=== PATIENT | female | born 1990 | race Caucasian/White ===

== ENCOUNTER 2017-06-08 14:43 | Emergency (ER) | payer OTHER ==
[~2017-06-08] VITALS: Ht 157.5 cm; Wt 97.7 kg
[2017-06-08 14:46] VITALS: TEMP 98.6
[2017-06-08 15:28] LABS: BASO # 0.1 (0.0-0.2); BASO % 0.6 % (0.0-2.0); EOS # 0.5 (0.0-0.7); EOS % 3.1 % (0-4.0); GRAN # 9.1 (1.4-6.5); GRAN % 60.2 % (42.2-75.2); HEMATOCRIT 42.2 % (37.0-47.0); HEMOGLOBIN 13.6 g/dl (12.5-16.0); LYMPH # 4.6 (1.2-3.4); LYMPH % 30.8 % (20.0-51.0); MEAN CELL VOLUME 86 fl (80.0-100.0); MEAN CORPUSCULAR HEMOGLOBIN 28 pg (27.0-31.0); MEAN CORPUSCULAR HGB CONC 32 g/dl (33.0-37.0); MEAN PLATELET VOLUME 9.2 fl (7.4-10.4); MONO # 0.7 (0.1-0.6); MONO % 4.4 % (1.7-9.3); PLATELET COUNT 424 K/mm3 (130-400); WHITE BLOOD COUNT 15.1 K/mm3 (4.8-10.8)
[2017-06-08 15:36] LABS: CALCIUM 9.8 mg/dL (8.4-10.2); CREATININE, serum 0.74 mg/dL (0.52-1.25)
[2017-06-08 16:46] VITALS: BP 147/103; PULSE 84
== END 2017-06-08 16:48 | disposition home or self-care (01) ==
LOC: COL.ER 14:43
PROVIDERS: Emergency Medicine
DX: N93.9 Abnormal uterine and vaginal bleeding, unspecified (principal); F17.210 Nicotine dependence, cigarettes, uncomplicated
CPT/HCPCS: J7030

== ENCOUNTER → 2017-12-13 | Outpatient (CLI) | payer OTHER | LOC: COL.RAD 14:20 | DX: R51 Headache (principal) | CPT/HCPCS: A9585 ==

== ENCOUNTER → 2018-04-12 | Outpatient (CLI) | payer OTHER | LOC: SUN.DIA 09:29 | DX: E11.9 Type 2 diabetes mellitus without complications (principal); I10 Essential (primary) hypertension; E66.9 Obesity, unspecified | CPT/HCPCS: G0108 ==

== ENCOUNTER → 2018-05-08 | Outpatient (CLI) | payer OTHER | LOC: SUN.DIA 14:22 | DX: E11.9 Type 2 diabetes mellitus without complications (principal); I10 Essential (primary) hypertension; E66.9 Obesity, unspecified | CPT/HCPCS: G0108 ==

== ENCOUNTER 2018-11-07 20:13 | Emergency (ER) | payer OTHER ==
[~2018-11-07] VITALS: Ht 157.5 cm; Wt 90.9 kg
[2018-11-07 20:16] VITALS: TEMP 98.9
[2018-11-07] MEDS ORDERED: SINGULAIR 110 MG/TAB PO (20:23)
[2018-11-07] MEDS ORDERED: ZOLOFT 50MG50 MG PO (20:23)
[2018-11-07] MEDS ORDERED: GLUCOPHAGE500 MG/TAB (20:23)
[2018-11-07] MEDS ORDERED: LOPRESSOR100 MG PO (20:24)
[2018-11-07 21:05] LABS: COLLECTION METHOD CLEAN CATCH
[2018-11-07 21:10] LABS: BASO # 0.1 (0.0-0.2); BASO % 0.5 % (0.0-2.0); EOS # 0.5 (0.0-0.7); EOS % 2.1 % (0-4.0); GRAN # 14.1 (1.4-6.5); GRAN % 65.2 % (42.2-75.2); HEMOGLOBIN 13.5 g/dl (12.5-16.0); LYMPH # 5.7 (1.2-3.4); LYMPH % 26.6 % (20.0-51.0); MEAN CELL VOLUME 84 fl (80.0-100.0); MEAN CORPUSCULAR HEMOGLOBIN 28 pg (27.0-31.0); MEAN CORPUSCULAR HGB CONC 33 g/dl (33.0-37.0); MEAN PLATELET VOLUME 9.7 fl (7.4-10.4); MONO % 4.5 % (1.7-9.3); PLATELET COUNT 511 K/mm3 (130-400); RED BLOOD COUNT 4.91 M/mm3 (4.10-5.30)
[2018-11-07 21:13] LABS: MUCOUS Present /lpf; PH 5 (5-8); SQUAMOUS EPITHELIAL 0-2 /hpf; URINE APPEARANCE Clear; URINE BACTERIA None Seen /hpf; URINE BILIRUBIN Negative (NEGATIVE); URINE BLOOD Negative (NEGATIVE); URINE COLOR Yellow; URINE GLUCOSE 3+ (NEGATIVE); URINE KETONE Trace (NEGATIVE); URINE LEUKOCYTE ESTERASE Negative (NEGATIVE); URINE NITRATE Negative (NEGATIVE); URINE PROTEIN(semi-quant) Negative (NEGATIVE); URINE RBC 0-2 /hpf; URINE UROBILINOGEN Negative (NEGATIVE)
[2018-11-07 21:36] LABS: ALBUMIN 4.3 gm/dL (3.5-5.0); BILIRUBIN,TOTAL 0.4 mg/dL (0.0-1.0); C-REACTIVE PROTEIN 1.7 mg/dL (0.0-0.9); CALCIUM 9.4 mg/dL (8.4-10.2); CREATININE, serum 0.53 (0.52-1.25); TOTAL PROTEIN 7.7 gm/dL (6.4-8.2)
[2018-11-08 00:47] VITALS: BP 129/84; PULSE 88
== END 2018-11-08 00:48 | disposition home or self-care (01) ==
LOC: COL.ER 20:13
PROVIDERS: Physician Assistant
DX: N83.201 Unspecified ovarian cyst, right side (principal); F41.9 Anxiety disorder, unspecified; F32.9 Major depressive disorder, single episode, unspecified; I10 Essential (primary) hypertension; E11.9 Type 2 diabetes mellitus without complications; F17.210 Nicotine dependence, cigarettes, uncomplicated; Z79.84 Long term (current) use of oral hypoglycemic drugs; Z88.1 Allergy status to other antibiotic agents
CPT/HCPCS: J1885; J7030; Q9967

== ENCOUNTER 2020-06-24 06:57 | Day surgery (SDC) | payer SELFPAY ==
[~2020-06-24] VITALS: Ht 157.5 cm; Wt 86.4 kg
[~2020-06-24 06:57] MED LIST: GLUCOPHAGE500 MG/TAB; LOPRESSOR100 MG PO; SINGULAIR 110 MG/TAB PO; ZOLOFT 50MG50 MG PO
[2020-06-24 07:31] LABS: HEMATOCRIT 40.8 % (37.0-47.0); HEMOGLOBIN 13.5 g/dl (12.5-16.0); MEAN CELL VOLUME 84 fl (80.0-100.0); MEAN CORPUSCULAR HEMOGLOBIN 28 pg (27.0-31.0); MEAN CORPUSCULAR HGB CONC 33 g/dl (33.0-37.0); MEAN PLATELET VOLUME 9.2 fl (7.4-10.4); PLATELET COUNT 442 K/mm3 (130-400); RED BLOOD COUNT 4.86 M/mm3 (4.10-5.30); REDCELL DISTRIBUTION WIDTH-CV 13.1 % (11.5-14.5)
[2020-06-24 07:34] LABS: ALANINE AMINOTRANSFERASE 28 U/L (4-34); ALBUMIN 4.1 gm/dL (3.5-5.0); ALKALINE PHOSPHATASE 100 U/L (50-136); ANION GAP 10 mmol/L (7-16); AST,SGOT 26 U/L (15-37); BILIRUBIN,TOTAL 0.4 mg/dL (0.0-1.0); BLOOD UREA NITROGEN 14 mg/dL (7-17); CALCIUM 9.1 mg/dL (8.4-10.2); CARBON DIOXIDE 24 mmol/L (22-30); CHLORIDE 103 mmol/L (98-107); CREATININE, serum 0.45 (0.52-1.25); GLUCOSE 247 mg/dL (74-106); LIPASE 76 U/L (23-300); POTASSIUM 4.2 mmol/L (3.4-5.0); SODIUM 137 mmol/L (137-145); TOTAL PROTEIN 7.3 gm/dL (6.4-8.2)
[2020-06-24 07:45] LABS: LYMPHOCYTE 26 % (20.0-51.0); NEUTROPHILS 72 % (42.0-75.2); PLATELET ESTIMATE INCREASED (NORMAL)
[2020-06-24 07:47] LABS: TROPONIN-I < 0.012 ng/mL (0.000-0.035)
[2020-06-24 12:35] LABS: COLLECTION METHOD CLEAN CATCH
[2020-06-24 12:43] LABS: MUCOUS Present /lpf; PH 5 (5-8); URINE APPEARANCE Hazy; URINE BACTERIA None Seen /hpf; URINE BILIRUBIN Negative (NEGATIVE); URINE BLOOD Negative (NEGATIVE); URINE COLOR Yellow; URINE GLUCOSE 1+ (NEGATIVE); URINE KETONE Negative (NEGATIVE); URINE LEUKOCYTE ESTERASE Negative (NEGATIVE); URINE NITRATE Negative (NEGATIVE); URINE PROTEIN(semi-quant) Negative (NEGATIVE); URINE RBC 0-2 /hpf; URINE UROBILINOGEN Negative (NEGATIVE); URINE WBC 0-2 /hpf
[2020-06-24] MEDS ORDERED: NORCO 325 MG-51 TAB PO (13:59)
[2020-06-24 14:50] VITALS: BP 140/83; PULSE 91; TEMP 98
--- NOTE | 2020-06-24 14:50 | NUR ---
Pt to [facility] [place] [facility] via cart from PACU. Pt drowsy, but awakens easily to verbal stimuli. Denies pain or nausea. Bandaids x3 to abdomen are clean, dry, and intact. Pt wanting to rest. Will continue to monitor. Call light within reach.
[2020-06-24 15:05] VITALS: BP 147/85; PULSE 95
--- NOTE | 2020-06-24 15:05 | NUR ---
Pt sleeping. Respirations even and unlabored. Call light within reach.
[2020-06-24 15:20] VITALS: BP 152/90; PULSE 65
--- NOTE | 2020-06-24 15:20 | NUR ---
Pt continues to rest. Respirations even and unlabored.
[2020-06-24 15:35] VITALS: BP 142/79; PULSE 89
--- NOTE | 2020-06-24 15:35 | NUR ---
Pt awake. Denies pain or nausea. Ice water and applesauce given per pt request. Will continue to monitor. Call light within reach.
[2020-06-24 16:05] VITALS: BP 147/86; PULSE 79
--- NOTE | 2020-06-24 16:05 | NUR ---
Pt continues to rest. Pt tolerating food and fluids without difficulties. Will continue to monitor. Call light within reach.
[2020-06-24 16:35] VITALS: BP 140/92; PULSE 61
--- NOTE | 2020-06-24 16:35 | NUR ---
Pt continues to rest. Pt up to restroom with stand by assistance. Gait steady. Pt voids without difficulties. Pt back to room. Assisted with dressing. Will continue to monitor. Call light within reach.
--- NOTE | 2020-06-24 17:00 | NUR ---
Discharge teaching completed, pt verbalized understanding. After pt dressed, IV removed and pressure dressing applied. Pt taken via wheelchair to private vehicle for dc home with driving.
== END 2020-06-24 17:00 | disposition home or self-care (01) ==
LOC: COL.ER 06:57 → SDCO 13:48
PROVIDERS: Emergency Medicine
DX: K80.12 Calculus of gallbladder with acute and chronic cholecystitis without obstruction (principal); Z88.1 Allergy status to other antibiotic agents; I10 Essential (primary) hypertension; Z87.891 Personal history of nicotine dependence; F32.9 Major depressive disorder, single episode, unspecified; E11.9 Type 2 diabetes mellitus without complications; Z79.84 Long term (current) use of oral hypoglycemic drugs
CPT/HCPCS: J0330; J0690; J0744; J1170; J2250; J2405; J2704; J3010